=== PATIENT | male | born 1980 | race Caucasian/White ===

== ENCOUNTER 2019-02-05 11:25 | Emergency (ER) | payer BC, OTHER ==
[~2019-02-05] VITALS: Ht 177.8 cm; Wt 68.0 kg
[2019-02-05 12:47] LABS: BASOPHILS % 0.7 % (0.0-2.0); EOSINOPHILS % 2.5 % (0.0-5.0); HEMATOCRIT. 45.9 % (42.0-52.0); HEMOGLOBIN. 15.6 g/dL (14.0-18.0); LYMPHOCYTES % 17.6 % (20.0-50.0); MEAN CORPUSCULAR HEMOGLOBIN 28.1 pg (28.0-32.0); MEAN CORPUSCULAR VOLUME 82.6 fL (80.0-94.0); MEAN PLATELET VOLUME 6.8 fl (7.4-10.4); MONOCYTES % 10.5 % (2.0-8.0); NEUTROPHILS % 68.7 % (40.0-76.0); PLATELET 262 x1000/uL (130-400); RED BLOOD CELL COUNT 5.56 mill/uL (4.7-6.1); RED CELL DISTRIBUTION WIDTH 13.2 % (11.6-14.6)
[2019-02-05 12:53] LABS: CHLORIDE 107 mEq/L (98-107)
[2019-02-05] MEDS ORDERED: ASPIRIN 81MG TABLET PO ONE (15:15)
[2019-02-05 17:37] VITALS: BP 114/75
== END 2019-02-05 18:01 | disposition home or self-care (01) ==
LOC: ER 11:25
DX: R00.1 Bradycardia, unspecified (principal); R06.00 Dyspnea, unspecified
CPT/HCPCS: 36415; 71045; 83880; 84484; 93005; 99284